=== PATIENT | female | born 1990 | race Hispanic/Latino ===

== ENCOUNTER 2017-12-19 20:28 | Emergency (ER) | payer SELFPAY ==
--- NOTE | 2017-12-19 21:29 | RAD ---
CHEST TWO VIEWS: History: Dyspnea. FINDINGS: Cardiac silhouette and pulmonary vasculature are unremarkable. Mediastinum is midline. There is no co nfluent airspace consolidation, pneumothorax, or pleural fluid evident. IMPRESSION: No active cardiopulmonary abnormalities are demonstrated. POS: [facility]
[2017-12-19 23:59] LABS: #Eosinphils 0.8 thou/uL (0.0-0.7); #Lymphocytes 2.3 thou/uL (1.20-3.40); #Monocytes 0.8 thou/uL (0.11-0.59); #Neutrophils 8.6 thou/uL (1.40-6.50); %Basophils 0.4 % (0.0-1.0); %Eosinophils 6.2 % (0.0-10.0); %Lymphocytes 18.4 % (21.0-51.0); %Monocytes 6.3 % (0.0-10.0); %Neutrophils 68.7 % (42.0-75.0); Hemoglobin 13.2 g/dL (12.0-16.0); Mean Corpuscular HGB CONC 32.5 g/dL (32.0-36.0); Mean Corpuscular Hemoglobin 27.8 pg (27.0-31.0); Mean Corpuscular Volume 85.5 fl (81.0-99.0); Mean Platelet Volume 8.5 fL (7.4-10.4); Platelet Count 260 thou/uL (130-400); RBC Distribution Width 13.3 % (11.5-14.5); Red Blood Cell (RBC) Count 4.74 mill/uL (4.20-5.40); White Blood Cell (WBC) Count 12.5 thou/uL (4.8-10.8)
[2017-12-20 00:05] LABS: INR-International Normal Ratio 1.2; PTT 47.7 SEC (22.9-36.1); Prothrombin Time 14.8 SEC (12.0-14.7)
[2017-12-20 00:23] LABS: CKMB 0.5 ng/mL (0-6.6); Troponin I Less than 0.010 ng/mL (< 0.028)
[2017-12-20 00:27] LABS: ALT (SGPT) 17 U/L (8-55); AST (SGOT) 13 U/L (5-34); Albumin 4.6 g/dL (3.5-5.0); Alkaline Phosphatase 85 U/L (40-150); Anion Gap 13 mmol/L (10-20); BUN (Urea Nitrogen) 13 mg/dL (7.0-18.7); Bilirubin, Total 0.3 mg/dL (0.2-1.2); CK (CPK) 57 U/L (29-168); Calc. Creatinine Clearance 0 mL/min (70-130); Calcium 9.8 mg/dL (7.8-10.44); Carbon Dioxide 24 mmol/L (22-29); Chloride 106 mmol/L (98-107); Estimated GFR-MDRD Greater than 90; Globulin 3.6 g/dL (2.4-3.5); Glucose 110 mg/dL (70-105); Lipase 14 U/L (8-78); Potassium 3.6 mmol/L (3.5-5.1); Protein, Total 8.2 g/dL (6.0-8.3); Sodium 139 mmol/L (136-145)
--- NOTE | 2017-12-24 15:44 | EKG ---
Test Reason : SOB Blood Pressure : / mmHG Vent. Rate : 084 BPM Atrial Rate : 084 BPM P-R Int : 168 ms QRS Dur : 078 ms QT Int : 376 ms P-R-T Axes : 050 058 -02 degrees QTc Int : 444 ms Normal sinus rhythm Abnormal QRS-T angle, consider primary T wave abnormality Abnormal ECG Confirmed by RADHA CASON D.O. ([id number]), associate editor SUKI KIRKPATRICK ([id number]) on 12/24/2017 3:43:38 PM Referred By: Confirmed By:RADHA CASON D.O.
== END 2017-12-20 02:15 | disposition home or self-care (01) ==
LOC: ERS 20:28
DX: J30.9 Allergic rhinitis, unspecified (principal)
CPT/HCPCS: 36415; 71046; 80053; 82553; 83690; 83880; 84484; 85025; 85610; 85730; 93005

== ENCOUNTER 2018-07-18 10:13 | Day surgery (SDC) | payer SELFPAY ==
[2018-07-18 11:08] VITALS: BMI 32.8
--- NOTE | 2018-07-18 12:26 | PDOC.FPROB ---
Addendum entered and electronically signed by Neeru Royal MD 07/18/18 14: 48: BPs aside from initial BP were within normal limits. Negative workup for pre- eclampsia. Will discharge patient. She was instructed to make a follow-up appointment with PNC in 1-2 days for close monitoring of her BPs. Pre-e precautions given. Original Note: FMR OB H&P: HPI - History of Present Illness Chief Complaint: 28 yo F @ 31.6 by 13.1 US presents for elevated BP and headache History of Present Illness: 28 yo F @ 31.6 by 13.1 US presents for elevated BP and headache. Pt reports that she has had intermittent headaches for the last month that have been relieved by tylenol. She does not take BP medications at home, has no h/o elevated bp or h/o preeclampsia or PIH in previous pregnancies. She reports good movement, denies LOF, NVDC. Pt reports ttp in epigastric and ruq/luq in addition to cp with palpation. Pt has reported epigastric tenderness on previous PNC visits. Additionally, she reports vaginal bleeding on Tuesday which has not recurred. She mentioned this on her f/u pnc visit and had a UA done which was positive for leuk esterase and she has had an antibiotic sent to her pharmacy. No contractions. Primary Care Physician: PNC FMR OB H&P: Current - Care : 5 Para: 4 Gestational age: 31.6 Due date: 09/13/2018 Dating Criteria: 13.1 US Course/Complications: None - OB Labs Blood type: O RH: positive Antibody Screen: negative HIV: negative RPR: negative HepBsAg: negative Rubella: immune Urine drug screen: not done Gonorrhea: negative Chlamydia: negative 1 hour gtt: 111 GBS: unknown H&H: 12.5/36.3 Platelets: 243 FMR OB H&P: History - Past Medical History PMH: None - OB History OB History: All vaginal deliveries, no complications or LGA/SGA babies. 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 SERVICES History [employer]ATION SERVICES History: Negative pap this - Surgical History Sx History: Rt hand surgery, unknown date, no complications - Social History Social History: Denies alcohol, tobacco and drug use - Family History Family History: None FMR OB H&P: Medications - Current Home Medications: Medication Instructions Recorded Confirmed Type Acetaminophen [Tylenol] 1,000 mg PO Q6HR PRN 07/18/18 07/18/18 History Pnv No.95/Ferrous Fum/Folic AC 1 tablet PO DAILY 07/18/18 07/18/18 History [ Tablet] Allergies/Adverse Reactions: Allergies Allergy/AdvReac Type Severity Reaction Status Date / Time No Known Allergies Allergy Unverified 07/18/18 11:03 FMR OB H&P: ROS - Review of Systems General: denies: fever/chills, weight/appetite/sleep changes, fatigue Eyes: reports: vision changes. denies: eye pain, double vision ENT: denies: nasal congestion, rhinorrhea, ringing in ears, sore throat Cardiovascular: reports: chest pain (with palpation). denies: palpitation, edema Respiratory: denies: cough, congestion, shortness of breath Gastrointestinal: reports: abdominal pain, indigestion. denies: bloating, cramping, nausea, vomiting, diarrhea, constipation, bright red blood, dark black tarry stools Genitourinary (Female): denies: incontinence, dysuria, hematuria, polyuria, hesitancy, vaginal discharge, vaginal pain, vaginal bleeding, contractions Musculoskeletal: denies: pain, stiffness Neurologic: denies: numbness, syncope, weakness Integumentary: denies: itching, rash Hematologic/Lymphatic: denies: prolonged or excessive bleeding FMR OB H&P: Vital Signs - Maternal Vital signs: BP 145/77, 75-105 HR, Tmax 99, RR 18 - Heart Tones Baseline: 140 Variability: moderate Acceleration: present Deceleration: absent Category: category 1 [place] contractions every: None FMR OB H&P: Physical Exam - Physical Exam General: NAD, awake, alert and oriented HEENT: normocephalic and atraumatic, PERRLA, EOMI, MMM, conjunctiva clear, no scleral icterus, grossly normal vision, grossly normal hearing Neck: supple, trachea midline, no JVD Chest: no lesions, other (mildly ttp) Heart: RRR, normal S1/S2, no murmurs/rubs/gallops, pulses present, no edema General: CTAB, no respiratory distress, good air movement, no rales/rhonchi, no wheezing, no retractions Abdomen: soft, gravid, no masses, no hernias, other (Mildly ttp epigastric RUQ/ LUQ) Musculoskeletal: normal gait and station Neurological: DTR +3, no clonus, no tremor, no focal deficit Skin: no rash, good tugor, no jaundice Lymphatic: no unusual bruising or bleeding, no purpura Psychiatric: good judgement and insight FMR OB H&P: A/P - Problem List (1) induced hypertension Status: Suspected Code(s): O13.9 - GESTATIONAL HTN W/O SIGNIFICANT PROTEINURIA , UNSP TRIMESTER Qualifiers: Trimester: third trimester Qualified Code(s): O13.3 - Gestational [ -induced] hypertension without significant proteinuria, third trimester Assessment and Plan: PIH vs preeclampsia vs chronic HTN - will check cbc, cmp, urine protein/cr ratio and uric acid - PO hydrate - reactive strip, no contractions - if BPs remain below 130/80 and no contractions with reassuring strip and normal labs will d/c to home with close OP f/u - No ua as pt had UA done today at [facility] and culture is pending with abx sent Disposition: stable, will order preeclampsia labs. Dispo pending lab results Discussion: Date/Time: 07/18/18 1220 This H&P was discussed with Dr. Pryor who agree with the above documentation and plan. Attending Addendum - Attending Addendum Date/Time: 07/19/18 0750 I personally evaluated the patient and discussed the management with Dr. Segovia I agree with the History, Examination, Assessment and Plan documented above with any addition or exceptions noted below. Pt was monitored for several hours. BP remained well with in normal limits apart from an initial bp as documented above. Pt with out any other signs or symptoms of pih. Pt has been discharged home with instructions to f/u in 2 days with pnc for bp check. Fetus cat 1 tracing.
[2018-07-18 13:06] LABS: #Eosinphils 0.1 thou/uL (0.0-0.7); #Lymphocytes 1.4 thou/uL (1.20-3.40); #Monocytes 0.6 thou/uL (0.11-0.59); #Neutrophils 7.2 thou/uL (1.40-6.50); %Basophils 0.2 % (0.0-1.0); %Eosinophils 1.5 % (0.0-10.0); %Lymphocytes 15.2 % (21.0-51.0); %Monocytes 6.8 % (0.0-10.0); %Neutrophils 76.3 % (42.0-75.0); Hemoglobin 12.3 g/dL (12.0-16.0); Mean Corpuscular HGB CONC 33.9 g/dL (32.0-36.0); Mean Corpuscular Hemoglobin 30.1 pg (27.0-31.0); Mean Corpuscular Volume 88.9 fL (78.0-98.0); Mean Platelet Volume 8.6 fL (7.4-10.4); Platelet Count 239 thou/uL (130-400); RBC Distribution Width 12.5 % (11.5-14.5); Red Blood Cell (RBC) Count 4.07 mill/uL (4.20-5.40); White Blood Cell (WBC) Count 9.4 thou/uL (4.8-10.8)
[2018-07-18 13:26] LABS: ALT (SGPT) 18 U/L (8-55); AST (SGOT) 11 U/L (5-34); Albumin 3.7 g/dL (3.5-5.0); Alkaline Phosphatase 132 U/L (40-150); Anion Gap 12 mmol/L (10-20); BUN (Urea Nitrogen) 4 mg/dL (7.0-18.7); Bilirubin, Total 0.3 mg/dL (0.2-1.2); Calc. Creatinine Clearance 198 mL/min (70-130); Calcium 9.3 mg/dL (7.8-10.44); Carbon Dioxide 24 mmol/L (22-29); Chloride 104 mmol/L (98-107); Estimated GFR-MDRD Greater than 90; Globulin 3.6 g/dL (2.4-3.5); Glucose 89 mg/dL (70-105); Potassium 3.9 mmol/L (3.5-5.1); Protein, Total 7.3 g/dL (6.0-8.3); Sodium 136 mmol/L (136-145); Uric Acid 4.2 mg/dL (2.6-6.0)
[2018-07-18 14:22] LABS: Protein, Urine Random Quant Less than 10 mg/dL (1-14)
== END 2018-07-18 14:11 | disposition home or self-care (01) ==
LOC: L&D/OP 10:13
PROVIDERS: ATTEND Obstetrics & Gynecology
DX: O13.3 Gestational [pregnancy-induced] hypertension without significant proteinuria, third trimester (principal); Z3A.31 31 weeks gestation of pregnancy; Z79.899 Other long term (current) drug therapy
CPT/HCPCS: 36415; 80053; 82570; 84156; 84550; 85025; 99285

== ENCOUNTER 2018-08-15 17:18 | Day surgery (SDC) | payer SELFPAY ==
[2018-08-15 17:56] VITALS: BP 138/85; TEMP 98.1; BMI 31.8
--- NOTE | 2018-08-15 19:31 | PDOC.FPROB ---
FMR OB H&P: HPI - History of Present Illness Chief Complaint: headache, vision changes, dizziness Indentification: History of Present Illness: 28 yo at 35.6 here for headache. It started this morning and was associated with blurry vision, dizziness, SOB. Headache is frontal, 7/10, pressure-like. She took a 500mg tylenol at that time which mildly relieved headache. She reports she has been having high BPs this past month and has been monitored at the clinic and denies PIH with prior pregnancies. She denies chest pain, nausea, vomiting. Endorses FM, denies VB/LOF/VD. Reports mild CTX every 20 minutes starting yesterday. Per nurse, patient's revealed that they really desire to know the gender of the baby via U/S which is another reason they came to the L&D. Primary Care Physician: Dr. Yoder FMR OB H&P: Current - Care : 5 Para: 4 Gestational age: 35.6 Due date: 09/13/18 Dating Criteria: 1T sono Course/Complications: Elevated BPs (?) - OB Labs Blood type: O RH: positive Antibody Screen: negative HIV: negative RPR: negative HepBsAg: negative Rubella: immune Gonorrhea: negative Chlamydia: negative 1 hour gtt: 111 GBS: unknown FMR OB H&P: History - Past Medical History PMH: Denies - OB History OB History: 4 prior pregnancies: term, , no complications - [employer] History [employer] History: Pap smear during this : NILM - Surgical History Sx History: R wrist surgery due to trauma - Social History Social History: Denies tobacco/etoh/drug use - Family History Family History: HTN, DM FMR OB H&P: Medications - Current Home Medications: Medication Instructions Recorded Confirmed Type Acetaminophen [Tylenol] 1,000 mg PO Q6HR PRN 07/18/18 07/18/18 History Pnv No.95/Ferrous Fum/Folic AC 1 tablet PO DAILY 07/18/18 07/18/18 History [ Tablet] Allergies/Adverse Reactions: Allergies Allergy/AdvReac Type Severity Reaction Status Date / Time No Known Allergies Allergy Verified 08/15/18 17:51 FMR OB H&P: ROS - Review of Systems General: denies: fever/chills, recent trauma Eyes: reports: vision changes (blurry vision) ENT: denies: nasal congestion, sore throat Cardiovascular: reports: edema. denies: chest pain Respiratory: reports: shortness of breath. denies: cough Gastrointestinal: denies: abdominal pain, cramping, nausea, vomiting Genitourinary (Female): reports: contractions. denies: dysuria, vaginal discharge, vaginal pain, vaginal bleeding, vaginal pressure Musculoskeletal: denies: pain, stiffness, tenderness Neurologic: denies: numbness, syncope, weakness, loss of counsciousness Integumentary: denies: itching, rash, lesions Endocrine: denies: cold intolerance, heat intolerance Hematologic/Lymphatic: denies: prolonged or excessive bleeding Psychological: denies: depression, anxiety FMR OB H&P: Vital Signs - Maternal Vital signs: Vital Signs - First Documented Temp Pulse Resp BP 98.1 F 83 16 138/85 08/15/18 17:52 08/15/18 17:52 08/15/18 17:52 08/15/18 17:52 - Heart Tones Baseline: 140 Variability: moderate Acceleration: present Deceleration: absent Category: category 1 FMR OB H&P: Physical Exam - Physical Exam General: NAD, awake, alert and oriented HEENT: normocephalic and atraumatic, PERRLA, EOMI, conjunctiva clear, no scleral icterus Neck: supple, FROM Chest: non-tender to palpation Heart: RRR, normal S1/S2 General: CTAB, no respiratory distress, no retractions Abdomen: gravid Musculoskeletal: pulses present, FROM in all four extremities Skin: no rash, good tugor Lymphatic: no unusual bruising or bleeding, no purpura Psychiatric: intact recent and remote memory, good judgement and insight FMR OB H&P: A/P - Problem List (1) Headache Status: Acute Code(s): R51 - HEADACHE Discussion: Date/Time: 08/15/181913 1. Headache -BPs have been in 120s/70s-80s here in L&D -No prior hx of PIH, no records from past two months but per pt, was not told she needed to monitor BP at home or be started on any anti- hypertensives -PreE work up in 06/2018 showed Pr/Cr ratio 0.2 -Minimal concern for preE -FHT: Cat I, uterine irritability -SVE: not need at this time, no CTX on monitor and pre-term, no hx of labor -Will give 1L bolus fluids and 1g tylenol to help with headache. If sxs resolve will send home with labor precautions -Will continue to monitor BPs This H&P was discussed with Dr. Durham & Taco who agree with the above documentation and plan. Attending Addendum - Attending Addendum Date/Time: 08/15/18 8804 I personally evaluated the patient and discussed the management with Dr. Keller. I agree with the History, Examination, Assessment and Plan documented above with any addition or exceptions noted below. History suggest migraine, fundoscopy reveals sharp optic disc, no pappiledema bilaterally. CN and Neuro exam is normal. FHTs with normal baseline , accels noted. BP normal. CAMPO resolved with benadryl and reglan dose. Discharged to home.
[2018-08-15] MEDS ORDERED: Lactated Ringer's 1,000 ML IV SCH (19:45)
[2018-08-15] MEDS ORDERED: Acetaminophen 500 MG TAB PO SCH (19:45)
--- NOTE | 2018-08-15 21:36 | PDOC.LDPN ---
Labor & Delivery Progress Note - Subjective Subjective: comfortable - Objective General: NAD, resting - Assessment (1) Headache Code(s): R51 - HEADACHE Current Visit: Yes Status: Acute -: 1. Headache -still present after 1L bolus and 1g tylenol -FHT: CAT1, uterine irritability -BPs: 120s/70s -Opthalmoscope exam: sharp optic margins, no concern for papilledema -Likely migraine will give reglan 20mg IV q30min x4 and benadryl 25mg q1hr x2. Will reassess in 2 hrs and if CAMPO is gone will send home with rx for medications for migraines
[2018-08-15] MEDS ORDERED: Metoclopramide HCl 10 MG/2 ML VIAL IVP SCH (22:00)
[2018-08-15] MEDS ORDERED: diphenhydrAMINE 50 MG/ML VIAL IVP SCH (22:00)
== END 2018-08-15 23:00 | disposition home or self-care (01) ==
LOC: L&D/OP 17:18
PROVIDERS: ATTEND Obstetrics & Gynecology
DX: O99.89 Other specified diseases and conditions complicating pregnancy, childbirth and the puerperium (principal); R51 Headache; R42 Dizziness and giddiness; Z3A.35 35 weeks gestation of pregnancy
CPT/HCPCS: 76815; 96360; 96374; 99283; J1200; J2765

== ENCOUNTER 2018-08-28 21:24 | Day surgery (SDC) | payer OTHER ==
[2018-08-28 22:01] VITALS: BP 134/89; TEMP 98.6; BMI 32.5
--- NOTE | 2018-08-28 22:47 | PDOC.LDHP ---
Labor and Delivery H&P Chief complaint: other (HTN) HPI: 28 yo @ 37.5 wks by 13.1 wk sadiq presents with CC of HTN. BP increased throughout the day up to 160s systolic. She was seen at [facility] today and was told to come to hospital if pressures were high. Had a headache earlier which has resolved with tylenol taken at home. She reports feeling very worried and nervous now. No vaginal discharge, bleeding, LOF. No recent changes in vision. Mild upper abdominal pain that started today. Feels baby move. No consistent contractions. Patient has had BPs in 130s at [facility] but at recheck are normal. 08/16 had Uprot/ cr ratio of 0.42 but normal BP. Current gestational age (weeks): 37 (37.5) Dating criteria: second trimester ultrasound (13.1 wk) Grav: 5 Para: 4 OB History Details: Vaginal deliveries,no complications Past Medical History: None Current medications: other (Tylenol) Previous surgical history: other (R wrist) Allergies/Adverse Reactions: Allergies Allergy/AdvReac Type Severity Reaction Status Date / Time No Known Allergies Allergy Verified 08/15/18 17:51 Social history: none - Physical Exam Vital signs reviewed and normal: yes (BP 130s/90s at initial presentation, now 120s/80s) General: NAD, resting Heart: RRR Lungs: nonlabored breathing Abdomen: NTTP Extremeties: no edema FHT: category 1 - OB Labs Blood type: O RH: positive Antibody Screen: negative HIV: negative RPR: negative HEPSAg: negative 1 hour GCT: negative (111) GBS: unknown Urine drug screen: not done Rubella: immune - Plan Plan: observation in L&D -: HTN - Has not been officially diagnosed with gHTN as BP if elevated initially at [facility] , will normalize on recheck - BP stable here. Initially 130s->now 120s/80s. Patient nervous - U prot/cr 0.42 on 08/15. Was checked at [facility] today, 1cm dilated. - CBC and CMP done today normal. Uprotein 13. Cr <20. - BPs normalized, patient feeling better. - Cat I strip, no contractions. - Considering normal labs BPs, and no warning symptoms no concern for preE at this time. Dispo: Discharge home. Has induction scheduled for 2100 on 08/30. Given preE and return precautions. PNC: Rey
[2018-08-28 22:58] LABS: #Eosinphils 0.2 thou/uL (0.0-0.7); #Lymphocytes 1.9 thou/uL (1.20-3.40); #Monocytes 0.6 thou/uL (0.11-0.59); #Neutrophils 4.1 thou/uL (1.40-6.50); %Basophils 0.4 % (0.0-1.0); %Eosinophils 2.4 % (0.0-10.0); %Monocytes 9.3 % (0.0-10.0); %Neutrophils 59.9 % (42.0-75.0); Hemoglobin 10.8 g/dL (12.0-16.0); Mean Corpuscular HGB CONC 32.8 g/dL (32.0-36.0); Mean Corpuscular Hemoglobin 27.6 pg (27.0-31.0); Mean Platelet Volume 9.8 fL (7.4-10.4); Platelet Count 193 thou/uL (130-400); RBC Distribution Width 12.9 % (11.5-14.5); Red Blood Cell (RBC) Count 3.92 mill/uL (4.20-5.40); White Blood Cell (WBC) Count 6.8 thou/uL (4.8-10.8)
[2018-08-28 23:21] LABS: ALT (SGPT) 17 U/L (8-55); AST (SGOT) 14 U/L (5-34); Albumin 3.4 g/dL (3.5-5.0); Alkaline Phosphatase 185 U/L (40-150); Anion Gap 12 mmol/L (10-20); BUN (Urea Nitrogen) 9 mg/dL (7.0-18.7); Bilirubin, Total 0.3 mg/dL (0.2-1.2); Calc. Creatinine Clearance 194 mL/min (70-130); Carbon Dioxide 21 mmol/L (22-29); Chloride 107 mmol/L (98-107); Estimated GFR-MDRD Greater than 90; Globulin 3.3 g/dL (2.4-3.5); Glucose 86 mg/dL (70-105); Potassium 3.7 mmol/L (3.5-5.1); Protein, Total 6.7 g/dL (6.0-8.3); Sodium 136 mmol/L (136-145)
[2018-08-28 23:22] LABS: Creatinine, Urine Less than 20.00 mg/dL (47-110); Protein, Urine Random Quant 13 mg/dL (1-14)
== END 2018-08-29 00:03 | disposition home or self-care (01) ==
LOC: L&D/OP 21:24
PROVIDERS: ATTEND Family Medicine
DX: O99.89 Other specified diseases and conditions complicating pregnancy, childbirth and the puerperium (principal); R03.0 Elevated blood-pressure reading, without diagnosis of hypertension; Z3A.37 37 weeks gestation of pregnancy
CPT/HCPCS: 80053; 82570; 84156; 85025; 99284

== ENCOUNTER 2018-08-30 20:52 | Inpatient (IN) | payer MEDICAID, OTHER, SELFPAY ==
[~2018-08-30 20:52] MED LIST: Bupivacaine 0.25% 10 ML VIAL ONE
[2018-08-30 21:28] VITALS: BMI 36.3
[2018-08-30] MEDS: Lactated Ringer's 1,000 ML IV SCH (21:45)
[2018-08-30] MEDS ORDERED: Promethazine HCl 25 MG/ML VIAL IM PRN (22:31)
[2018-08-30] MEDS ORDERED: Ondansetron PF 4 MG/2 ML Vial IVP PRN (22:31)
[2018-08-30] MEDS ORDERED: Lidocaine 1% (PF) 30 ML VIAL SC PRN (22:31)
[2018-08-30] MEDS ORDERED: Acetaminophen 500 MG TAB PO PRN (22:31)
[2018-08-30 22:41] LABS: Hemoglobin 11.1 g/dL (12.0-16.0); Mean Corpuscular HGB CONC 33.2 g/dL (32.0-36.0); Mean Corpuscular Hemoglobin 27.8 pg (27.0-31.0); Mean Corpuscular Volume 83.8 fL (78.0-98.0); Mean Platelet Volume 10.4 fL (7.4-10.4); Platelet Count 200 thou/uL (130-400); RBC Distribution Width 12.9 % (11.5-14.5)
[2018-08-30] MEDS ORDERED: Misoprostol 100 MCG TAB VAG SCH (22:45)
--- NOTE | 2018-08-31 00:48 | PDOC.FPROB ---
FMR OB H&P: HPI - History of Present Illness Chief Complaint: Scheduled induction History of Present Illness: This is a 28 yo at 38 weeks by 13.1 wk US who presents to L&D for a scheduled induction. She reports that the only complications during her was gestational HTN. She report a minor headache at this time but denies nausea, vomiting, chest pain, or sob. FMR OB H&P: Current - Care : 5 Para: 4004 Gestational age: 38 Due date: 09/14 - OB Labs Blood type: O RH: positive Antibody Screen: negative HIV: negative RPR: negative HepBsAg: negative Rubella: immune GBS: negative FMR OB H&P: History - Past Medical History PMH: none - OB History OB History: 4 vaginal deliveries at term - Social History Social History: Denies D/A/T - Family History Family History: noncontributory FMR OB H&P: Medications - Current Home Medications: Medication Instructions Recorded Confirmed Type Acetaminophen [Tylenol] 500 mg PO Q6HR PRN 07/18/18 08/30/18 History Allergies/Adverse Reactions: Allergies Allergy/AdvReac Type Severity Reaction Status Date / Time No Known Allergies Allergy Verified 08/30/18 21:33 FMR OB H&P: ROS - Review of Systems General: denies: fever/chills, weight/appetite/sleep changes Eyes: denies: eye pain, vision changes ENT: denies: nasal congestion, rhinorrhea Cardiovascular: denies: chest pain, palpitation Respiratory: denies: cough, shortness of breath Gastrointestinal: denies: abdominal pain, nausea, vomiting Genitourinary (Female): denies: incontinence, dysuria, vaginal bleeding Musculoskeletal: denies: pain, stiffness Neurologic: denies: numbness, syncope Integumentary: denies: itching, rash Psychological: denies: depression, anxiety FMR OB H&P: Vital Signs - Maternal Vital signs: Vital Signs - First Documented Temp Pulse Resp BP 97.9 F 92 19 126/92 H 08/30/18 21:17 08/30/18 21:17 08/30/18 21:17 08/30/18 21:17 - Heart Tones Baseline: 140 Variability: moderate Acceleration: present Deceleration: absent Category: category 1 FMR OB H&P: Physical Exam - Physical Exam General: NAD, awake, alert and oriented HEENT: normocephalic and atraumatic, EOMI, MMM Neck: FROM, no JVD Chest: non-tender to palpation Heart: RRR, normal S1/S2, no murmurs/rubs/gallops General: CTAB, no respiratory distress, good air movement, no wheezing Abdomen: soft, gravid Musculoskeletal: pulses present, FROM in all four extremities Neurological: cranial nerves II through XII intact Skin: no rash, good tugor Psychiatric: intact recent and remote memory, good judgement and insight, normal mood and affect - Pelvic Exam SVE: -2 FMR OB H&P: Results - Labs Lab results: Laboratory Results - last 24 hr 08/30/18 08/30/18 21:45 21:45 WBC 6.0 RBC 4.00 L Hgb 11.1 L Hct 33.5 L MCV 83.8 MCH 27.8 MCHC 33.2 RDW 12.9 Plt Count 200 MPV 10.4 Blood Type O POSITIVE Antibody Screen NEGATIVE FMR OB H&P: A/P - Problem List (1) Elective induction of labor planned Current Visit: Yes Status: Acute Code(s): [id number] - (2) Term Current Visit: Yes Status: Acute Code(s): Z34.80 - ENCOUNTER FOR SUPRVSN OF NORMAL , UNSP TRIMESTER Disposition: This is a 28 yo at 38wks by 13.1 wk US Scheduled induction of term -Pt. is admitted to L&D. Initial check is 3 at 2154. We will administer cytotec at this time and reassess in 3-4 hours. We will adjust our management at that time. Gestational HTN -Aware, no need for intervention at this time. Discussion: Date/Time: 08/31/18 0044 This H&P was discussed with Dr. Ortega and Dr. Moser who agree with the above documentation and plan.
--- NOTE | 2018-08-31 02:12 | PDOC.LDPN ---
Labor & Delivery Progress Note - Subjective Subjective: comfortable, no concerns - Objective Vital signs reviewed and normal: yes General: NAD, resting Uterine fundus: non tender SVE: 2/50/-2 Dilation: 2 at the inner os Effacement: 50% Station: -2 FHT: category 1, variability present (moderate, baseline 130) [place] contractions every: 5-7 minutes - Assessment (1) Term Code(s): Z34.80 - ENCOUNTER FOR SUPRVSN OF NORMAL , UNSP TRIMESTER Current Visit: Yes Status: Acute (2) induced hypertension Code(s): O13.9 - GESTATIONAL HTN W/O SIGNIFICANT PROTEINURIA, UNSP TRIMESTER Current Visit: No Status: Suspected Qualifiers: Trimester: third trimester Qualified Code(s): O13.3 - Gestational [ -induced] hypertension without significant proteinuria, third trimester Plan: continue plan of care -: This is a 28 yo at 38 weeks Term -Latest exam is unchanged at 250/-2. Contractions are spaced out at 5-7 and so we are adding another dose of cytotec. We will recheck pt. in 3-4 hours. Gestational HTN -135/85 currently, we will continue to monitor
[2018-08-31] MEDS ORDERED: Misoprostol 100 MCG TAB VAG SCH (02:15)
[2018-08-31] MEDS: Lactated Ringer's 1,000 ML IV SCH ×2 (03:41→08:19)
[2018-08-31] MEDS ORDERED: NS w/ Oxytocin 10 units 500 ML IV SCH (07:00)
[2018-08-31] MEDS ORDERED: Fentanyl 4 mcg/Bup 0.1% Cadd 100 ML ONE (07:29)
[2018-08-31] MEDS ORDERED: Labetalol HCl 100 MG/20 ML VIAL SLOW IVP PRN (07:33)
[2018-08-31] MEDS ORDERED: Eucerin (Mineral Oil/Petrolatum,White) 30 gm Jar TOP PRN (08:17)
[2018-08-31] MEDS ORDERED: Promethazine HCl 25 MG/ML VIAL IM PRN (08:17)
[2018-08-31] MEDS ORDERED: diphenhydrAMINE 50 MG/ML VIAL IVP PRN (08:17)
[2018-08-31] MEDS ORDERED: Ondansetron PF 4 MG/2 ML Vial IVP PRN (08:17)
[2018-08-31] MEDS ORDERED: ePHEDrine/0.9% NaCl/PF SYRINGE 50 mg/10 ml SLOW IVP PRN (08:17)
[2018-08-31] MEDS ORDERED: Acetaminophen 325 MG TAB PO PRN (08:17)
[2018-08-31] MEDS ORDERED: Naloxone HCl 0.4 mg/ml Vial IVP PRN ×2 (08:17)
[2018-08-31] MEDS ORDERED: Lactated Ringer's 500 ML IV PRN (08:17)
[2018-08-31] MEDS ORDERED: Communication Order-Pharmacy FS SCH (08:30)
[2018-08-31] MEDS ORDERED: Fentanyl 4 mcg/Bupivacaine 0.1% Cassette 100 ML EPIDURAL SCH (08:30)
--- NOTE | 2018-08-31 08:32 | PDOC.LDPN ---
Labor & Delivery Progress Note - Subjective Subjective: comfortable - Objective Vital signs reviewed and normal: yes General: NAD Uterine fundus: non tender Dilation: 4 Effacement: 75% Station: -2 FHT: category 1 [place] contractions every: 140/moderate/+ accels/no decels - Assessment (1) Term Code(s): Z34.80 - ENCOUNTER FOR SUPRVSN OF NORMAL , UNSP TRIMESTER Current Visit: Yes Status: Acute Plan: continue plan of care, labor augmentation -: 28yo @38 weeks sIUP, induction - Resting comfortably with Epidural - Last cervical check /-2 - Will start pitocin - Continue serial cervical checks Gestational HTN - P 128/780 - Continue to monitor <Arti Kiser - Last Filed: 08/31/18 09:59> Attending Addendum - Attending Addendum Date/Time: 08/31/18 1528 I personally evaluated the patient and discussed the management with Dr. Kiser Agree with above. <Adam Reynoso - Last Filed: 08/31/18 15:29>
[2018-08-31 08:40] LABS: ALT (SGPT) 18 U/L (8-55); AST (SGOT) 16 U/L (5-34); Albumin 3.3 g/dL (3.5-5.0); Alkaline Phosphatase 207 U/L (40-150); Anion Gap 13 mmol/L (10-20); BUN (Urea Nitrogen) 6 mg/dL (7.0-18.7); Bilirubin, Total 0.3 mg/dL (0.2-1.2); Calc. Creatinine Clearance 186 mL/min (70-130); Calcium 8.9 mg/dL (7.8-10.44); Carbon Dioxide 20 mmol/L (22-29); Chloride 107 mmol/L (98-107); Estimated GFR-MDRD Greater than 90; Globulin 3.1 g/dL (2.4-3.5); Glucose 85 mg/dL (70-105); Potassium 3.9 mmol/L (3.5-5.1); Protein, Total 6.4 g/dL (6.0-8.3); Sodium 136 mmol/L (136-145)
--- NOTE | 2018-08-31 08:59 | PDOC.LDPN ---
Labor & Delivery Progress Note - Subjective Subjective: comfortable, vaginal pressure, other (Nurse reports vaginal bleeding , more that expected.) - Objective Vital signs reviewed and normal: yes General: NAD, resting Uterine fundus: non tender SVE: 350/-2, sterile speculum exam revealed oozing blood from cervix Dilation: 3 Effacement: 50% Station: -2 - Assessment (1) Term Code(s): Z34.80 - ENCOUNTER FOR SUPRVSN OF NORMAL , UNSP TRIMESTER Current Visit: Yes Status: Acute (2) induced hypertension Code(s): O13.9 - GESTATIONAL HTN W/O SIGNIFICANT PROTEINURIA, UNSP TRIMESTER Current Visit: No Status: Suspected Qualifiers: Trimester: third trimester Qualified Code(s): O13.3 - Gestational [ -induced] hypertension without significant proteinuria, third trimester -: This is a 28 yo at 38 weeks Term -Latest exam is 50/-2. Contractions are still spaced out at 5-7 and so we are starting pitocin. We will recheck pt. in 3-4 hours. Vaginal bleeding -The blood is dark and oozing. This likely represents a small cervical vessel that ruptured and does not require immediate intervention. We will continue monitoring. Gestational HTN - we will continue to monitor
[2018-08-31 10:06] LABS: Creatinine, Urine 37.53 mg/dL (47-110)
--- NOTE | 2018-08-31 11:05 | PDOC.LDPN ---
Labor & Delivery Progress Note - Subjective Subjective: comfortable - Objective Vital signs reviewed and normal: yes General: NAD Uterine fundus: non tender Dilation: 6 Effacement: 100% Station: -1 FHT: category 1 (130/moderate/+ accels/no decels) - Assessment (1) Term Code(s): Z34.80 - ENCOUNTER FOR SUPRVSN OF NORMAL , UNSP TRIMESTER Current Visit: Yes Status: Acute Plan: continue plan of care, labor augmentation -: 28yo @38 weeks sIUP, induction - Resting comfortably with Epidural - Last cervical check 6/100/-1 - Continue pitocin for labor augmentation - Continue serial cervical checks Gestational HTN - BP 120/76 - Continue to monitor
[2018-08-31] MEDS ORDERED: NS / Oxytocin 40 units/1000ml 1,000 ML ONE (14:16)
[2018-08-31] MEDS: NS / Oxytocin 40 units/1000ml 1,000 ML IV PRN ×2 (14:50→16:12)
--- NOTE | 2018-08-31 15:01 | PDOC.OPDEL ---
OB Operative/Delivery Note Delivery Dr/Surgeon: Dr Kiser/Dr Le Assist: Attending: Dr Reynoso Pre-Delivery Diagnosis: medically indicated induction Procedure/Post Delivery Dx: spontaneous vaginal delivery Anesthesia: epidural - Additional Findings/Plan Placenta delivered: spontaneous Repaired Obstetrical Laceration: none Post delivery plan: routine recovery <Arti Kiser - Last Filed: 09/02/18 06:47> Attending Addendum - Attending Addendum Date/Time: 09/02/18 0912 I personally evaluated the patient and discussed the management with Agree with above. Easy with no complications. Patient tolerated well, healthy baby. <Adam Reynoso - Last Filed: 09/02/18 09:13>
[2018-08-31] MEDS: Misoprostol 200 MCG TAB ONE (16:11)
[2018-08-31] MEDS ORDERED: NS / Oxytocin 40 units/1000ml 1,000 ML IV SCH (16:13)
[2018-08-31] MEDS ORDERED: diphenhydrAMINE 25 MG CAP PO PRN (16:13)
[2018-08-31] MEDS ORDERED: Milk Of Magnesia 30 ML UDCUP PO PRN (16:13)
[2018-08-31] MEDS ORDERED: Benzocaine/Menthol 20-0.5% 60 ML CAN TOP PRN (16:13)
[2018-08-31] MEDS ORDERED: Preparation H Ointment 28 GM TUBE PR PRN (16:13)
[2018-08-31] MEDS ORDERED: Adacel (T-DAP) 0.5 ML VIAL IM ONE (16:13)
[2018-08-31] MEDS ORDERED: Bisacodyl 10 MG SUPP PR PRN (16:13)
[2018-08-31] MEDS ORDERED: Misoprostol 200 MCG TAB VAG PRN (16:13)
--- NOTE | 2018-08-31 18:29 | DN-2 ---
DATE OF DELIVERY: 08/31/2018 DELIVERING PHYSICIANS: Arti Kiser, PGY1; Charles Le, PGY2 and Karina Patel, PGY2. ATTENDING: Adam Reynoso M.D. PROCEDURE: Spontaneous vaginal delivery. ANESTHESIA: Epidural. ESTIMATED BLOOD LOSS: 400 mL PREOPERATIVE DIAGNOSES: 1. Term intrauterine in labor. 2. Gestational hypertension. POSTOPERATIVE DIAGNOSES: 1. Term intrauterine , delivered. 2. Gestational hypertension. INDICATIONS: A 28-year-old female G5, P4-0-0-4 presented to L and D for induction of labor due to ge stational hypertension. DELIVERY NOTE: This is a 28-year-old female G5, P4-0-0-4 at 38 weeks who delivered a viable male inf ant at 1446. Following an uneventful antepartum course, a vigorous male was delivered over an intact perineum in the occiput anterior position, anterior shoulder and then remainder of the body delivere d. Nuchal cord x1. The head was held down and mouth and nares were bulb suctioned. Cord clamped an d cut and cord blood collected. Placenta delivered intact with a 3-vessel cord noted. Fundal massag e was performed and the fundus was firm. Cervix and vagina were inspected and found to be free of la cerations. went to the nursery in good condition for routine care. Apgars were 8 and 9 at 1 and 5 minutes respectively. The patient tolerated delivery well and went to after routine recovery/care.
[2018-08-31] MEDS: Ferrous Sulfate 325 MG TAB PO SCH (18:37)
[2018-08-31 19:18] LABS: Syphilis Antibody Nonreactive (Nonreactive); Syphilis Antibody Index 0.06 S/CO (<1.00 Non-Reactive)
[2018-08-31 19:19] LABS: HBSAg Index 0.16 S/CO (0-0.99); Hep B Surf Ag Non-Reactive S/CO (NonReactive)
[2018-08-31] MEDS: Docusate Calcium (SURFAK) 240 MG CAP PO SCH (21:27)
[2018-09-01 05:45] LABS: Mean Corpuscular HGB CONC 32.6 g/dL (32.0-36.0); Mean Corpuscular Hemoglobin 27.7 pg (27.0-31.0); Mean Corpuscular Volume 84.9 fL (78.0-98.0); Mean Platelet Volume 9.7 fL (7.4-10.4); Platelet Count 160 thou/uL (130-400); Red Blood Cell (RBC) Count 3.62 mill/uL (4.20-5.40); White Blood Cell (WBC) Count 8.4 thou/uL (4.8-10.8)
[2018-09-01] MEDS: Ibuprofen 800 MG TAB PO SCH ×2 (06:31→13:26)
--- NOTE | 2018-09-01 07:19 | PDOC.PP ---
Post Progress Note Post Day #: 1 Subjective: Pt reports doing well. Denies any complaints this morning. No headaches, dizziness, vision changes. Pt denies any leg swelling. Denies any abdominal pain. Denies any SOB. Denies any fever or chills. No other concerns at this time. PO intake tolerated: yes Flatus: yes Ambulation: yes Vital Signs (12 hours) Temp Pulse Resp BP Pulse Ox 09/01/18 04:15 98.3 F 67 18 113/73 09/01/18 00:35 98.3 F 64 18 123/61 08/31/18 20:05 98.1 F 59 L 18 124/73 99 Weight Weight 84.368 kg - Physical Examination General: NAD Cardiovascular: no m/r/g, RRR Respiratory: clear to auscultation bilaterally, non-labored breathing Abdominal: + bowel sounds, lochia (Pt reports no bleeding this morning.), no distention, appropriately TTP Fundus firm & at: umbilicus Extremities: negative homans (B) Neurological: no gross focal deficits Psychiatric: normal affect Result Diagrams: 09/01/18 05:31 08/30/18 21:45 Additional Labs: Post Labs Blood Type O POSITIVE 08/30/18 21:45 Hep Bs Antigen Non-Reactive S/CO (NonReactive) 08/31/18 18:21 (1) Term Code(s): Z34.80 - ENCOUNTER FOR SUPRVSN OF NORMAL , UNSP TRIMESTER Status: Acute (2) induced hypertension Code(s): O13.9 - GESTATIONAL HTN W/O SIGNIFICANT PROTEINURIA, UNSP TRIMESTER Status: Suspected Qualifiers: Trimester: third trimester Qualified Code(s): O13.3 - Gestational [ -induced] hypertension without significant proteinuria, third trimester - Assessment/Plan 28 yo F ->5 delivered JULIETA Solis via on 08/31/18 @ 14:46. Term , Delivered -EBL 450. No signs of bleeding at this time. No lacerations -Pt doing well. Up walking around. No complaints -Routine post care gestational HTN -No severe range pressures. Pressures have come down in the normal range. Continue to monitor today. -discussed preE signs with pt and when to return to ER in next few weeks.
[2018-09-01] MEDS: Ferrous Sulfate 325 MG TAB PO SCH ×2 (07:57→16:03)
[2018-09-01] MEDS: Docusate Calcium (SURFAK) 240 MG CAP PO SCH (09:00)
[2018-09-01] MEDS ORDERED: Prenatal Vitamin 1 TAB PO SCH (09:00)
[2018-09-01] MEDS ORDERED: Acetaminophen 325 MG TAB PO PRN (15:01)
[2018-09-01 17:37] VITALS: BP 144/84; TEMP 98.6
== END 2018-09-01 17:05 | disposition home or self-care (01) | DRG 807 ==
LOC: L&D 20:52 → 3SW 08-31 18:04
PROVIDERS: ADMIT Family Medicine; ATTEND Family Medicine
PROC: 10E0XZZ Delivery of Products of Conception, External Approach (ICD-10-PCS; principal; 2018-08-30)
PROC: 10907ZC Drainage of Amniotic Fluid, Therapeutic from Products of Conception, Via Natural or Artificial Opening (ICD-10-PCS; 2018-08-30)
PROC: 3E033VJ Introduction of Other Hormone into Peripheral Vein, Percutaneous Approach (ICD-10-PCS; 2018-08-30)
DX: O13.4 Gestational [pregnancy-induced] hypertension without significant proteinuria, complicating childbirth (principal); Z37.0 Single live birth; Z3A.38 38 weeks gestation of pregnancy; O69.81X0 Labor and delivery complicated by cord around neck, without compression, not applicable or unspecified
CPT/HCPCS: 36415; 51702; 80053; 82570; 84156; 85027; 86780; 86850; 86900; 86901; 87340; S0020

== ENCOUNTER 2019-05-27 23:51 | Emergency (ER) | payer MEDICAID, SELFPAY ==
[2019-05-28 00:21] LABS: Bilirubin Negative (Negative); Blood, Urine Negative (Negative); Clarity Turbid (Clear); Glucose, Urine (Dipstick) Normal (Negative); Leukocyte 75 Leu/uL (Negative); Nitrite Negative (Negative); Pregnancy Test - Urine (BHCG) Negative (Negative); Pregu Control Background? CLEAR/WHITE (CLR/WHITE); Pregu Control Bar Appear? YES (CONTROL BAR); Protein, Urine (Dipstick) Negative (Neg-Trace); RBC/HPF 0-3 HPF (0-3); Specific Gravity 1.019 (1.002-1.036); Urobilinogen Normal mg/dL (Less than 2); WBC/HPF None Seen HPF (0-3)
[2019-05-28 00:22] LABS: Bacteria/HPF Rare-Few HPF (None Seen)
[2019-05-28 00:23] LABS: #Basophils 0.1 thou/uL (0.0-0.2); #Eosinphils 0.5 thou/uL (0.0-0.7); #Lymphocytes 3.9 thou/uL (1.20-3.40); #Monocytes 0.8 thou/uL (0.11-0.59); #Neutrophils 4.7 thou/uL (1.40-6.50); %Eosinophils 4.7 % (0.0-10.0); %Lymphocytes 39.7 % (21.0-51.0); %Monocytes 7.6 % (0.0-10.0); Hemoglobin 11.8 g/dL (12.0-16.0); Mean Corpuscular HGB CONC 31.7 g/dL (32.0-36.0); Mean Corpuscular Hemoglobin 26.5 pg (27.0-31.0); Mean Corpuscular Volume 83.7 fL (78.0-98.0); Mean Platelet Volume 9.2 fL (7.4-10.4); Platelet Count 253 thou/uL (130-400); RBC Distribution Width 14.6 % (11.5-14.5); Red Blood Cell (RBC) Count 4.47 mill/uL (4.20-5.40); White Blood Cell (WBC) Count 9.9 thou/uL (4.8-10.8)
[2019-05-28 00:47] LABS: ALT (SGPT) 25 U/L (8-55); AST (SGOT) 34 U/L (5-34); Alkaline Phosphatase 89 U/L (40-150); Anion Gap 12 mmol/L (10-20); BUN (Urea Nitrogen) 17 mg/dL (7.0-18.7); Bilirubin, Total 0.4 mg/dL (0.2-1.2); Calc. Creatinine Clearance 0 mL/min (70-130); Calcium 9.5 mg/dL (7.8-10.44); Carbon Dioxide 25 mmol/L (22-29); Chloride 103 mmol/L (98-107); Estimated GFR-MDRD Greater than 90; Globulin 3.1 g/dL (2.4-3.5); Glucose 106 mg/dL (70-105); Lipase 38 U/L (8-78); Potassium 3.8 mmol/L (3.5-5.1); Protein, Total 7.1 g/dL (6.0-8.3); Sodium 136 mmol/L (136-145)
--- NOTE | 2019-05-28 07:38 | CT ---
PRELIMINARY REPORT/[facility]/EMERGENCY AFTER HOURS PROCEDURE: EXAM: CT Abdomen and Pelvis With Contrast EXAM DATE/TIME: 05/28/2019 3:07 AM CLINICAL HISTORY: 29 years old, female; Abdominal pain; Patient HX: 29yof with no significant pmh who presents to the ED with a cc of ruq pain that she first experienced last night. The patient states that the pain bega n last night when she went to bed and lasted a few hours before subsiding the following morning. However, she says the pain returned last night when she went to bed again and has been constant since. She says it is crampy/gas-like pain that is 10/10 in severity in her ruq with radiation into h er rlq and epigastrium with associated nausea but no vomiting, diarrhea, constipation, fever/chills, dysuria , hematuria or urinary frequency. Denies any vaginal discharge or pain/itching as well. 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 TECHNIQUE: Imaging protocol: Axial computed tomography images of the abdomen and pelvis with intravenous contrast. COMPARISON: No relevant prior studies available. FINDINGS: Limitations: Motion artifact limits this study. Liver: Normal. No mass. Gallbladder and bile ducts: Normal. No calcified stones. No ductal dilation. Pancreas: Normal. No ductal dilation. Spleen: Normal. No splenomegaly. Adrenals: Normal. No mass. Kidneys and ureters: Normal. No hydronephrosis. Stomach and bowel: No evidence of small bowel obstruction. Appendix: Appendix - visualized portions appear normal. Intraperitoneal space: Normal. No free air. No significant fluid collection. Vasculature: Normal. No abdominal aortic aneurysm. Lymph nodes: Normal. No enlarged lymph nodes. Bladder: Unremarkable as visualized. Reproductive: Ovoid up to 5.7 x 5.5 x 5 cm fatty lesion with calcification in left adnexal region pel vis. Bones/joints: No acute fracture. No dislocation. Soft tissues: Unremarkable. IMPRESSION: 1. Motion artifact limits this study. 2. Appendix - visualized portions appear normal. 3. 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 4. No evidence of small bowel obstruction. Thank you for allowing us to participate in the care of your patient. Dictated and Authenticated by: James Moore MD 05/28/2019 4:28 AM Central Time ([place] & [place]) FINAL REPORT CT ABDOMEN AND PELVIS WITH IV CONTRAST 05/28/2019 performed on emergency basis at 0309 hours: HISTORY: Abdomen pain. FINDINGS: Agree with the preliminary report by Dr. Moore from [facility]. Large dermoid of the left adnexa . No evidence of complication. Significant motion artifact obscures detail. No acute abnormalities of the upper abdomen are apparent . Code QA. Transcribed Date/Time: 05/28/2019 8:09 AM
--- NOTE | 2019-05-28 07:52 | ULT ---
GALLBLADDER ULTRASOUND: INDICATION: Right upper quadrant pain. FINDINGS: There is moderate distention of the gallbladder with cholelithiasis and a borderline-sized gallbladde r wall at 3 mm. There is mild prominence of the common duct measuring 5-6 mm. No focal hepatic lesi on or ascites. IMPRESSION: 1. Cholelithiasis, with borderline-sized gallbladder wall and moderate gallbladder distention. 2. There is mild prominence of the common duct measuring 5-6 mm. 3. Recommend clinical correlation to exclude evidence of cholecystitis. Correlation with biliary la boratory values also recommended to exclude biliary obstructive process. POS: RENEE
[2019-05-28] MEDS ORDERED: ISOVUE-370 76%-LOCM 1 ML ONE (14:33)
== END 2019-05-28 05:55 | disposition home or self-care (01) ==
LOC: ERS 23:51
DX: D27.1 Benign neoplasm of left ovary (principal); K80.10 Calculus of gallbladder with chronic cholecystitis without obstruction; I10 Essential (primary) hypertension; Z79.1 Long term (current) use of non-steroidal anti-inflammatories (NSAID)
CPT/HCPCS: 36415; 74177; 76705; 80053; 81003; 81015; 81025; 83690; 85025; 87086; Q9966

== ENCOUNTER 2019-06-29 19:34 | Emergency (ER) | payer SELFPAY ==
[2019-06-29 20:00] LABS: #Basophils 0.1 thou/uL (0.0-0.2); #Eosinphils 0.5 thou/uL (0.0-0.7); #Lymphocytes 3.5 thou/uL (1.20-3.40); #Monocytes 0.7 thou/uL (0.11-0.59); #Neutrophils 4.6 thou/uL (1.40-6.50); %Basophils 0.9 % (0.0-1.0); %Eosinophils 5.2 % (0.0-10.0); %Lymphocytes 37.1 % (21.0-51.0); %Monocytes 7.4 % (0.0-10.0); %Neutrophils 49.4 % (42.0-75.0); Hemoglobin 12.2 g/dL (12.0-16.0); Mean Corpuscular HGB CONC 33.4 g/dL (32.0-36.0); Mean Corpuscular Hemoglobin 26.9 pg (27.0-31.0); Mean Corpuscular Volume 80.7 fL (78.0-98.0); Mean Platelet Volume 8.8 fL (7.4-10.4); Platelet Count 265 thou/uL (130-400); RBC Distribution Width 14.5 % (11.5-14.5); Red Blood Cell (RBC) Count 4.52 mill/uL (4.20-5.40); White Blood Cell (WBC) Count 9.4 thou/uL (4.8-10.8)
[2019-06-29] MEDS ORDERED: Ondansetron PF 4 MG/2 ML Vial ONE (20:00)
[2019-06-29] MEDS ORDERED: Morphine 4 MG/ML VIAL ONE (20:00)
[2019-06-29 20:06] LABS: BHCG - Serum Negative (NEGATIVE); Pregs Control Background? CLEAR/WHITE (CLR/WHITE); Pregs Control Bar Appear? YES (CONTROL BAR)
[2019-06-29 20:22] LABS: ALT (SGPT) 20 U/L (8-55); AST (SGOT) 22 U/L (5-34); Albumin 4.7 g/dL (3.5-5.0); Alkaline Phosphatase 85 U/L (40-150); Anion Gap 13 mmol/L (10-20); BUN (Urea Nitrogen) 13 mg/dL (7.0-18.7); Bilirubin, Total 0.4 mg/dL (0.2-1.2); Calc. Creatinine Clearance 0 mL/min (70-130); Calcium 9.8 mg/dL (7.8-10.44); Carbon Dioxide 25 mmol/L (22-29); Chloride 101 mmol/L (98-107); Estimated GFR-MDRD Greater than 90; Globulin 3.5 g/dL (2.4-3.5); Glucose 107 mg/dL (70-105); Lipase 26 U/L (8-78); Potassium 3.1 mmol/L (3.5-5.1); Protein, Total 8.2 g/dL (6.0-8.3); Sodium 136 mmol/L (136-145)
--- NOTE | 2019-06-29 20:56 | ULT ---
US Gallbladder RUQ: 06/29/2019 7:47 PM CLINICAL HISTORY: Right upper quadrant abdominal pain. STUDY: Limited right upper quadrant ultrasound of abdomen. COMPARISON: 05/28/2019 FINDINGS: Liver: Size: Normal. Echogenicity: Normal. Contour: Smooth. Mass: None. Bile ducts: No intrahepatic or extrahepatic biliary dilatation. Common bile duct measures 5 mm. Gallbladder: Cholelithiasis. Pancreas: Head, body, and tail appear normal. Right kidney: No pelvicalyceal dilatation. Right kidney measuring 11.5 cm in length. IMPRESSION: Cholelithiasis
== END 2019-06-29 21:40 | disposition home or self-care (01) ==
LOC: ERS 19:34
DX: K80.20 Calculus of gallbladder without cholecystitis without obstruction (principal); I10 Essential (primary) hypertension
CPT/HCPCS: 76705; 80053; 83690; 84703; 85025; 96361; 96374; 96375; J2270; J2405